=== PATIENT | male | born 1970 | race Caucasian/White ===

== ENCOUNTER 2020-06-01 15:21 | Inpatient (IN) | payer OTHER ==
[2020-06-01] MEDS ORDERED: MAG HYDROX/AL HYDROX/SIMETH 30 ML UNIT-DOSE CUP PO ONE (18:20)
[2020-06-01] MEDS ORDERED: FAMOTIDINE 20 MG/50 ML IVPB 20 MG/50 ML MG IVPB ONE ×2 (18:20→18:33)
[2020-06-01] MEDS ORDERED: MAG HYDROX/AL HYDROX/SIMETH 30 ML UNIT-DOSE CUP ONE (18:33)
[2020-06-01 19:29] LABS: BASO % 0.7 % (0-2.0); EOS % 1.9 % (0-4.5); HEMATOCRIT 44.9 % (35.4-49); HEMOGLOBIN 15.5 GM/dL (11.7-16.9); LYMPH % 21.1 % (8-40); MCH 30.6 pg (25.7-33.7); MCHC 34.5 g/dl (32.0-35.9); MEAN CELL VOLUME 88.8 fl (80-96); MEAN PLT VOLUME 7.9 fl (7.5-11.1); MONO % 8.8 % (3.8-10.2); NEUT % 67.5 % (42.8-82.8); PLATELET COUNT 209 K/MM3 (134-434); RBC 5.05 M/mm3 (4.00-5.60); RDW 12.8 % (11.9-15.9); WHITE BLOOD COUNT 9.2 K/mm3 (4.0-10.0)
[2020-06-01 19:41] LABS: CHLORIDE 106 mmol/L (98-107); POTASSIUM 4.3 mmol/L (3.5-5.1); SODIUM 139 mmol/L (136-145)
[2020-06-01 19:44] LABS: CALCIUM 9.1 mg/dL (8.5-10.1)
[2020-06-01 19:46] LABS: ALBUMIN 3.9 g/dl (3.4-5.0); ANION GAP 7 MMOL/L (8-16); BLOOD UREA NITROGEN 28.6 mg/dL (7-18); CO2 26 mmol/L (21-32); GLUCOSE,RANDOM 82 mg/dL (74-106)
[2020-06-01 19:47] LABS: LIPASE 160 U/L (73-393)
[2020-06-01 19:49] LABS: CREATININE 2.4 mg/dL (0.55-1.3); SGOT/AST 25 U/L (15-37); SGPT/ALT 53 U/L (13-61)
[2020-06-01 19:50] LABS: BILIRUBIN,TOTAL 0.7 mg/dL (0.2-1); TOT PROT 7.7 g/dl (6.4-8.2)
[2020-06-01 19:52] LABS: ALK PHOS 59 U/L (45-117)
[2020-06-01 20:50] LABS: URINE APPEARANCE CLEAR; URINE BILIRUBIN NEGATIVE (NEGATIVE); URINE COLOR YELLOW; URINE GLUCOSE (UA) NEGATIVE (NEGATIVE); URINE KETONE NEGATIVE (NEGATIVE); URINE LEUK ESTERASE NEGATIVE (NEGATIVE); URINE NITRITE NEGATIVE (NEGATIVE); URINE PROTEIN NEGATIVE (NEGATIVE); URINE UROBILINOGEN 0.2 mg/dL (0.2-1.0)
[2020-06-02] MEDS ORDERED: ACETAMINOPHEN 1000 MG/100 ML VIAL (NON FORMULARY) IVPB ONE (00:37)
[2020-06-02] MEDS ORDERED: LACTATED RINGERS SOLUTION 1000 ML INFUS.BAG IV ONE (00:37)
[2020-06-02] MEDS ORDERED: ACETAMINOPHEN INJECTION 100 ML IVPB ONE (00:43)
[2020-06-02] MEDS ORDERED: ACETAMINOPHEN 325 MG TABLET (FP) PO PRN (02:29)
[2020-06-02] MEDS ORDERED: SODIUM CHLORIDE 1,000 ML IV SCH (02:30)
[2020-06-02] MEDS ORDERED: LABETALOL HCL 5 MG/1 ML (100MG/20 ML VIAL) IVPUSH ONE (02:32)
[2020-06-02] MEDS ORDERED: LABETALOL HCL 5 MG/1 ML (100MG/20 ML VIAL) ONE (03:10)
[2020-06-02] MEDS: HEPARIN NA (PORCINE) 5,000 UNITS/ML 1ML VIAL SQ SCH ×3 (06:11→21:06)
[2020-06-02 08:07] LABS: HEMATOCRIT 44.6 % (35.4-49); HEMOGLOBIN 15.6 GM/dL (11.7-16.9); MCH 30.8 pg (25.7-33.7); MCHC 34.9 g/dl (32.0-35.9); MEAN PLT VOLUME 7.8 fl (7.5-11.1); PLATELET COUNT 195 K/MM3 (134-434); RBC 5.07 M/mm3 (4.00-5.60); RDW 12.6 % (11.9-15.9); WHITE BLOOD COUNT 8.2 K/mm3 (4.0-10.0)
[2020-06-02 08:13] LABS: CALCIUM 8.8 mg/dL (8.5-10.1)
[2020-06-02 08:14] LABS: ALBUMIN 3.5 g/dl (3.4-5.0); BLOOD UREA NITROGEN 26.7 mg/dL (7-18)
[2020-06-02 08:17] LABS: CREATININE 2.4 mg/dL (0.55-1.3)
[2020-06-02 08:19] LABS: BILIRUBIN,TOTAL 0.5 mg/dL (0.2-1); TOT PROT 6.8 g/dl (6.4-8.2)
[2020-06-02] MEDS ORDERED: LABETALOL HCL 100 MG TABLET (FP) ONE (08:52)
[2020-06-02] MEDS ORDERED: LABETALOL HCL 100 MG TABLET (FP) PO SCH (10:00)
[2020-06-02] MEDS ORDERED: LABETALOL HCL 5 MG/1 ML (100MG/20 ML VIAL) IVPUSH PRN (10:22)
[2020-06-02 12:17] VITALS: BMI 32.3
[2020-06-02] MEDS: LABETALOL HCL 100 MG TABLET (FP) PO SCH ×2 (17:02→21:06)
[2020-06-02] MEDS ORDERED: FAMOTIDINE 10 MG TABLET PO ONE (22:19)
[2020-06-03] MEDS: HEPARIN NA (PORCINE) 5,000 UNITS/ML 1ML VIAL SQ SCH ×3 (05:05→21:23)
[2020-06-03] MEDS: LABETALOL HCL 100 MG TABLET (FP) PO SCH ×3 (05:05→21:21)
[2020-06-03 08:22] LABS: BASO % 0.9 % (0-2.0); EOS % 2.7 % (0-4.5); HEMATOCRIT 42.5 % (35.4-49); LYMPH % 24.3 % (8-40); MCH 30.9 pg (25.7-33.7); MCHC 35.4 g/dl (32.0-35.9); MEAN CELL VOLUME 87.4 fl (80-96); MEAN PLT VOLUME 7.5 fl (7.5-11.1); MONO % 8.6 % (3.8-10.2); NEUT % 63.5 % (42.8-82.8); PLATELET COUNT 210 K/MM3 (134-434); RBC 4.86 M/mm3 (4.00-5.60); RDW 12.5 % (11.9-15.9); WHITE BLOOD COUNT 8.5 K/mm3 (4.0-10.0)
[2020-06-03 08:45] LABS: POTASSIUM 4.1 mmol/L (3.5-5.1)
[2020-06-03 08:49] LABS: BLOOD UREA NITROGEN 24.8 mg/dL (7-18); CALCIUM 8.9 mg/dL (8.5-10.1)
[2020-06-03 08:51] LABS: ALBUMIN 3.7 g/dl (3.4-5.0); MAGNESIUM 2.4 mg/dL (1.8-2.4)
[2020-06-03 08:54] LABS: CREATININE 2.5 mg/dL (0.55-1.3); PHOSPHOROUS 4.7 mg/dL (2.5-4.9)
[2020-06-03 08:55] LABS: BILIRUBIN,TOTAL 0.8 mg/dL (0.2-1); TOT PROT 7.1 g/dl (6.4-8.2)
[2020-06-03] MEDS ORDERED: PT OWN MED DRAWER 7, Y5N ONE ×2 (09:35→21:13)
[2020-06-03] MEDS ORDERED: NIFEdipine E.R. 30 MG TABLET PO SCH (10:00)
[2020-06-03] MEDS ORDERED: SODIUM CHLORIDE 0.45% 1,000 ML IV SCH (15:30)
[2020-06-03 18:06] LABS: SYPHILIS W/ RPR CONF NON-REACTIVE (NONREACTIVE)
[2020-06-03 18:34] LABS: HIV INTERPRETATION NEGATIVE (NEGATIVE)
[2020-06-03] MEDS: NIFEdipine E.R. 30 MG TABLET PO SCH (21:21)
[2020-06-04] MEDS: LABETALOL HCL 100 MG TABLET (FP) PO SCH (05:31)
[2020-06-04] MEDS: HEPARIN NA (PORCINE) 5,000 UNITS/ML 1ML VIAL SQ SCH (05:31)
[2020-06-04 05:35] VITALS: BP 120/79; PULSE 79; TEMP 98.4
[2020-06-04 07:33] LABS: BASO % 0.8 % (0-2.0); EOS % 3.1 % (0-4.5); HEMATOCRIT 41.6 % (35.4-49); HEMOGLOBIN 14.4 GM/dL (11.7-16.9); LYMPH % 27.2 % (8-40); MCH 30.5 pg (25.7-33.7); MCHC 34.6 g/dl (32.0-35.9); MEAN PLT VOLUME 7.7 fl (7.5-11.1); MONO % 8.7 % (3.8-10.2); NEUT % 60.2 % (42.8-82.8); PLATELET COUNT 189 K/MM3 (134-434); RBC 4.73 M/mm3 (4.00-5.60); RDW 12.6 % (11.9-15.9); WHITE BLOOD COUNT 8.4 K/mm3 (4.0-10.0)
[2020-06-04 07:56] LABS: POTASSIUM 4.1 mmol/L (3.5-5.1)
[2020-06-04 07:59] LABS: ALBUMIN 3.5 g/dl (3.4-5.0); BLOOD UREA NITROGEN 25.6 mg/dL (7-18); CALCIUM 8.7 mg/dL (8.5-10.1); MAGNESIUM 2.1 mg/dL (1.8-2.4)
[2020-06-04 08:03] LABS: CREATININE 2.5 mg/dL (0.55-1.3); PHOSPHOROUS 4.4 mg/dL (2.5-4.9)
[2020-06-04 08:04] LABS: BILIRUBIN,TOTAL 0.6 mg/dL (0.2-1); TOT PROT 6.8 g/dl (6.4-8.2)
[2020-06-04] MEDS ORDERED: PT OWN MED DRAWER 7, Y5N ONE (09:49)
[2020-06-04] MEDS: NIFEdipine E.R. 30 MG TABLET PO SCH (11:42)
[2020-06-06 16:12] LABS: ATYPICAL pANCA <1:20 titer (Neg:<1:20); C-ANCA <1:20 titer (Neg:<1:20)
[2020-06-08 11:08] LABS: ANTIGLOMERULAR BASEMENT MEN.AB 3 units (0-20)
== END 2020-06-04 13:00 | disposition home or self-care (01) | DRG 199 ==
LOC: JER 15:21 → JERBED 06-02 01:14 → J7W 06-02 11:18
PROVIDERS: ADMIT Internal Medicine; ATTEND Internal Medicine
DX: I16.1 Hypertensive emergency (principal); K21.9 Gastro-esophageal reflux disease without esophagitis; N17.9 Acute kidney failure, unspecified; I12.9 Hypertensive chronic kidney disease with stage 1 through stage 4 chronic kidney disease, or unspecified chronic kidney disease; N18.9 Chronic kidney disease, unspecified; M54.5 Low back pain
CPT/HCPCS: 36415; 71045-TC-FY; 74176-TC; 76775-TC; 76856-TC; 80053; 80074; 81003; 82436; 82570; 83516; 83520; 83690; 83735; 84100; 84133; 84155; 84165; 84300; 84484; 85025; 85027; 86038; 86160; 86162; 86256; 86780; 87086; 87389; 93005; 93010; 99285-25; C9803; J0131; J1644; U0003; U0005

== ENCOUNTER 2020-07-11 20:06 | Emergency (ER) | payer OTHER ==
[2020-07-11 20:16] VITALS: TEMP 98.5; BMI 31.1
[2020-07-11] MEDS ORDERED: METOCLOPRAMIDE HCL INJECTION 10 MG/2 ML VIAL IVPB ONE (20:54)
[2020-07-11] MEDS ORDERED: LACTATED RINGERS SOLUTION 1000 ML INFUS.BAG IV ONE (20:56)
[2020-07-11] MEDS ORDERED: METOCLOPRAMIDE HCL INJECTION 10 MG/2 ML VIAL ONE (21:01)
[2020-07-11 21:54] LABS: BASO % 0.8 % (0-2.0); EOS % 3.1 % (0-4.5); HEMATOCRIT 41.2 % (35.4-49); HEMOGLOBIN 14.5 GM/dL (11.7-16.9); LYMPH % 24.2 % (8-40); MCH 30.1 pg (25.7-33.7); MCHC 35.3 g/dl (32.0-35.9); MEAN CELL VOLUME 85.5 fl (80-96); MEAN PLT VOLUME 7.3 fl (7.5-11.1); MONO % 6.7 % (3.8-10.2); NEUT % 65.2 % (42.8-82.8); PLATELET COUNT 238 K/MM3 (134-434); RBC 4.83 M/mm3 (4.00-5.60); RDW 12.5 % (11.9-15.9); WHITE BLOOD COUNT 9.5 K/mm3 (4.0-10.0)
[2020-07-11] MEDS ORDERED: DEXAMETHASONE SOD PHOSPHATE 10 MG/1 ML VIAL IVPUSH ONE (22:06)
[2020-07-11 22:07] LABS: CHLORIDE 99 mmol/L (98-107); SODIUM 136 mmol/L (136-145)
[2020-07-11 22:09] LABS: CALCIUM 8.9 mg/dL (8.5-10.1)
[2020-07-11 22:11] LABS: ALBUMIN 4.1 g/dl (3.4-5.0); ANION GAP 8 MMOL/L (8-16); BLOOD UREA NITROGEN 8.8 mg/dL (7-18); CO2 28 mmol/L (21-32); GLUCOSE,RANDOM 90 mg/dL (74-106); MAGNESIUM 2.1 mg/dL (1.8-2.4)
[2020-07-11 22:13] LABS: CREATININE 1.1 mg/dL (0.55-1.3); SGOT/AST 23 U/L (15-37); SGPT/ALT 37 U/L (13-61)
[2020-07-11 22:14] LABS: BILIRUBIN,TOTAL 0.6 mg/dL (0.2-1); TOT PROT 7.8 g/dl (6.4-8.2)
[2020-07-11 22:16] LABS: ALK PHOS 62 U/L (45-117)
[2020-07-11] MEDS ORDERED: DEXAMETHASONE SOD PHOSPHATE 10 MG/1 ML VIAL ONE (22:21)
[2020-07-11 22:39] VITALS: PULSE 75
[2020-07-11 22:41] VITALS: BP 148/95
== END 2020-07-11 23:30 | disposition home or self-care (01) ==
LOC: JER 20:06
PROC: 3E033GC Introduction of Other Therapeutic Substance into Peripheral Vein, Percutaneous Approach (ICD-10-PCS; principal; 2020-07-11)
PROC: 3E033GC Introduction of Other Therapeutic Substance into Peripheral Vein, Percutaneous Approach (ICD-10-PCS; 2020-07-11)
DX: R51.9 Headache, unspecified (principal); I10 Essential (primary) hypertension
CPT/HCPCS: 36415; 70450-TC; 80053; 82550; 82553; 83735; 84484; 85025; 93005; 93010; 99285-25; J1100